=== PATIENT | male | born 1955 | race Caucasian/White ===

== ENCOUNTER → 2022-11-16 | Outpatient (REF) | payer MEDICARE ==
[~2022-11-16] MED LIST: ATOR80TA59 PO; BAYE81TA7 PO; BISO10TA14 PO; CARDCAP3 PO; CLOP75TA2 PO; D31000CA4 PO; FOLI1TAB11 PO; LISI40TA4 PO; NITR-67 PO; TRIA37.5 PO; VITA100T28 PO
== END ==
LOC: M SMT 13:05
PROVIDERS: ATTEND Urology
DX: Z01.818 Encounter for other preprocedural examination (principal); C61 Malignant neoplasm of prostate; N39.0 Urinary tract infection, site not specified

== ENCOUNTER → 2022-11-18 | Outpatient (CLI) | payer MEDICARE, OTHER | LOC: M LABSMTC 10:26 | PROVIDERS: ATTEND Anesthesiology | DX: Z01.818 Encounter for other preprocedural examination (principal) ==

== ENCOUNTER 2022-11-23 06:03 | Inpatient (IN) | payer MEDICARE ==
[~2022-11-23] VITALS: Ht 180.3 cm; Wt 105.0 kg
[2022-11-23] VITALS (8 sets, daily range): BP systolic 104–143; BP diastolic 71–85
[~2022-11-23 06:03] MED LIST changes: +HEPARIN SOD (PORCINE) 5000UNITS/ML 1ML VIAL/SYRINGE SQ ONE
[2022-11-23] MEDS ORDERED: ceFAZolin SOD 2 GM in IV 1 EA IV ONE (06:05)
[2022-11-23] MEDS ORDERED: LR 1,000 ML IV SCH ×2 (06:40→12:20)
[2022-11-23] MEDS ORDERED: BUPIVACAINE HCL 0.25% 30ML VIAL As Ordered ONE (07:07)
[2022-11-23] MEDS ORDERED: LIDOCAINE 1% SDV 30ML VIAL As Ordered ONE (07:07)
[2022-11-23] MEDS ORDERED: LIDOCAINE 2% 100MG/5ML SDV (FOR ANES.) As Ordered ONE (07:17)
[2022-11-23] MEDS ORDERED: propofoL 200 MG/20 ML VIAL As Ordered ONE (07:17)
[2022-11-23] MEDS ORDERED: ROCURONIUM BROMIDE 50MG/5ML VIAL As Ordered ONE ×3 (07:17→10:42)
[2022-11-23] MEDS ORDERED: fentaNYL 250 MCG/5 ML INJECTION As Ordered ONE (07:18)
[2022-11-23] MEDS ORDERED: MIDAZOLAM INJ 2MG/2ML VIAL As Ordered ONE (07:18)
[2022-11-23] MEDS ORDERED: ACETAMINOPHEN TAB 650MG DOSE (2X325MG) PO PRN (07:25)
[2022-11-23] MEDS ORDERED: PERCOCET 5MG/325MG TAB PO PRN ×2 (07:25)
[2022-11-23] MEDS ORDERED: ONDANSETRON 4MG 2ML VIAL IV PRN ×2 (07:25→12:20)
[2022-11-23] MEDS ORDERED: PHENYLephrine 500MCG 5ML (100MCG/ML) SYRINGE As Ordered ONE ×2 (07:43→08:29)
[2022-11-23] MEDS ORDERED: LACRILUBE (AKWA TEARS) OPHTH OINT 3.5GM As Ordered ONE (07:48)
[2022-11-23] MEDS ORDERED: ePHEDrine SULFATE 25 MG/5 ML(5MG/ML) SYRINGE As Ordered ONE (08:29)
[2022-11-23] MEDS ORDERED: ONDANSETRON 4MG 2ML VIAL As Ordered ONE (08:38)
[2022-11-23] MEDS ORDERED: KETOROLAC 60MG 2ML VIAL As Ordered ONE (08:38)
[2022-11-23] MEDS ORDERED: ACETAMINOPHEN 1000MG 100ML IV BAG As Ordered ONE (08:38)
[2022-11-23] MEDS ORDERED: METOCLOPRAMIDE INJ 10MG/2ML VIAL As Ordered ONE (08:38)
[2022-11-23] MEDS ORDERED: MAXZIDE 75/50 TABLET PO SCH (09:00)
[2022-11-23] MEDS ORDERED: HYDROmorphone HCL 2MG/ML 1ML VIAL As Ordered ONE (10:26)
[2022-11-23] MEDS ORDERED: fentaNYL 100 MCG/2 ML INJECTION IV PRN (12:20)
[2022-11-23] MEDS ORDERED: HYDROMORPHONE HCL 0.5 MG/ 0.5 ML SYRINGE IV PRN (12:20)
[2022-11-23] MEDS ORDERED: oxyCODONE 5MG TAB PO PRN (12:20)
[2022-11-23] MEDS ORDERED: SUGAMMADEX SODIUM 500 MG/5 ML VIAL (BRIDION) As Ordered ONE (12:27)
[2022-11-23 13:27] LABS: HEMATOCRIT 30.6 % (42.0-52.0); HEMOGLOBIN 10.2 g/dl (13.5-17.5); MEAN CORPUSCULAR HEMOGLOBIN 32.4 pg (27.0-33.0); MEAN CORPUSCULAR HGB CONC 33.3 g/dl (32.0-36.5); MEAN CORPUSCULAR VOLUME 97.1 fl (80.0-96.0); PLATELET COUNT, AUTOMATED 180 10^3/uL (150-450); RED BLOOD COUNT 3.15 10^6/uL (4.30-6.10); WHITE BLOOD COUNT 12.2 10^3/uL (4.0-10.0)
[2022-11-23 13:50] LABS: CALCIUM LEVEL 8.3 MG/DL (8.3-10.6); CREATININE FOR GFR 1.5 MG/DL (0.70-1.30); GLOMERULAR FILTRATION RATE 49.7 (>49); POTASSIUM SERUM 4.8 MMOL/L (3.5-5.1)
[2022-11-23] MEDS: NS 1,000 ML IV SCH (14:45)
[2022-11-23] MEDS: DOCUSATE SODIUM 100MG CAPSULE PO SCH ×2 (15:00→20:24)
[2022-11-23] MEDS: HEPARIN SOD (PORCINE) 5000UNITS/ML 1ML VIAL/SYRINGE SC SCH ×2 (15:07→21:21)
[2022-11-23] MEDS: ceFAZolin SOD 1 GM in D5W MINI-BAG PLUS 50 ML IV SCH ×2 (15:08→23:01)
[2022-11-23] MEDS: lisinopriL 40MG TAB PO SCH (16:00)
[2022-11-23] MEDS ORDERED: PILL CUTTER 1 EACH XX PRN (16:20)
[2022-11-23] MEDS ORDERED: ATORVASTATIN 20 MG TAB PO SCH (21:00)
[2022-11-24] MEDS: NS 1,000 ML IV SCH (02:37)
[2022-11-24 03:00] VITALS: BP 101/65
[2022-11-24] MEDS: HEPARIN SOD (PORCINE) 5000UNITS/ML 1ML VIAL/SYRINGE SC SCH ×2 (05:31→14:09)
[2022-11-24 06:00] LABS: HEMATOCRIT 26.1 % (42.0-52.0); HEMOGLOBIN 8.8 g/dl (13.5-17.5); MEAN CORPUSCULAR HEMOGLOBIN 32.7 pg (27.0-33.0); MEAN CORPUSCULAR HGB CONC 33.7 g/dl (32.0-36.5); PLATELET COUNT, AUTOMATED 179 10^3/uL (150-450); RED BLOOD COUNT 2.69 10^6/uL (4.30-6.10); WHITE BLOOD COUNT 9.9 10^3/uL (4.0-10.0)
[2022-11-24 06:30] LABS: CALCIUM LEVEL 8.5 MG/DL (8.3-10.6); CREATININE FOR GFR 1.28 MG/DL (0.70-1.30); GLOMERULAR FILTRATION RATE 59.7 (>49); POTASSIUM SERUM 4.1 MMOL/L (3.5-5.1)
[2022-11-24 07:00] VITALS: BP 121/73
[2022-11-24 08:00] VITALS: BP 122/71
[2022-11-24] MEDS ORDERED: bisoproloL fumarate 10 MG TAB PO SCH (09:00)
[2022-11-24] MEDS ORDERED: MAXZIDE 75/50 TABLET PO SCH (09:00)
[2022-11-24] MEDS: lisinopriL 40MG TAB PO SCH (09:27)
[2022-11-24] MEDS: DOCUSATE SODIUM 100MG CAPSULE PO SCH (09:27)
[2022-11-24 09:28] VITALS: BP 122/71
[2022-11-24 10:00] VITALS: BP 115/67
[2022-11-24 12:00] VITALS: BP 107/61
[2022-11-24 14:07] LABS: HEMATOCRIT 26.3 % (42.0-52.0); HEMOGLOBIN 8.8 g/dl (13.5-17.5); MEAN CORPUSCULAR HEMOGLOBIN 32.2 pg (27.0-33.0); MEAN CORPUSCULAR HGB CONC 33.5 g/dl (32.0-36.5); MEAN CORPUSCULAR VOLUME 96.3 fl (80.0-96.0); PLATELET COUNT, AUTOMATED 169 10^3/uL (150-450); RED BLOOD COUNT 2.73 10^6/uL (4.30-6.10); WHITE BLOOD COUNT 10.6 10^3/uL (4.0-10.0)
[2022-11-24] MEDS ORDERED: COLA100C5 PO (15:25)
[2022-11-24] MEDS ORDERED: FERR325T3 PO (15:25)
[2022-11-24] MEDS ORDERED: PERCOCET PO (15:25)
[2022-11-24] MEDS ORDERED: BACT800T5 PO (15:25)
== END 2022-11-24 16:53 | disposition home or self-care (01) | DRG 708 ==
LOC: M OR 06:03 → M MSPAV 14:34
PROVIDERS: ADMIT Urology; ATTEND Urology
PROC: 07BC4ZZ Excision of Pelvis Lymphatic, Percutaneous Endoscopic Approach (ICD-10-PCS; 2022-11-23)
PROC: 8E0W4CZ Robotic Assisted Procedure of Trunk Region, Percutaneous Endoscopic Approach (ICD-10-PCS; 2022-11-23)
PROC: 0VT04ZZ Resection of Prostate, Percutaneous Endoscopic Approach (ICD-10-PCS; principal; 2022-11-23 07:30)
DX: C61 Malignant neoplasm of prostate (principal); R53.1 Weakness; M79.662 Pain in left lower leg; I10 Essential (primary) hypertension; E78.00 Pure hypercholesterolemia, unspecified; E55.9 Vitamin D deficiency, unspecified; R33.9 Retention of urine, unspecified; Z79.899 Other long term (current) drug therapy; Z79.82 Long term (current) use of aspirin

== ENCOUNTER → 2022-12-06 | Outpatient (CLI) | payer MEDICARE ==
[~2022-12-06] MED LIST changes: +BACT800T5 PO; +COLA100C5 PO; +CYSTO-CONRAY II 17.2% 250ML VIAL As Ordered ONE; +FERR325T3 PO; -HEPARIN SOD (PORCINE) 5000UNITS/ML 1ML VIAL/SYRINGE SQ ONE; +PERCOCET PO
== END ==
LOC: M RADPRO 09:32
PROVIDERS: ATTEND Urology
DX: R32 Unspecified urinary incontinence (principal)
CPT/HCPCS: 51610; 74430; Q9958

== ENCOUNTER → 2024-01-10 | Outpatient (REF) | payer MEDICARE, MEDICAID ==
[~2024-01-10] MED LIST changes: -CYSTO-CONRAY II 17.2% 250ML VIAL As Ordered ONE
[2024-01-10 19:12] LABS: ALBUMIN 4.2 G/DL (3.2-5.2); BILIRUBIN,TOTAL 1.3 MG/DL (0.3-1.2); CALCIUM LEVEL 9.9 MG/DL (8.3-10.6); CHOLESTEROL RISK RATIO 3.3 (<5); CREATININE FOR GFR 1.52 MG/DL (0.70-1.30); GLOMERULAR FILTRATION RATE 48.8 (>49); HDL CHOLESTEROL 35.7 MG/DL (>40); LDL CHOLESTEROL 60.5 MG/DL (<100); NON-HDL-C 82.3 MG/DL; POTASSIUM SERUM 3.6 MMOL/L (3.5-5.1)
[2024-01-10 19:21] LABS: HEMOGLOBIN A1c 6.4 % (4.0-6.0)
== END ==
LOC: M LAB REF 17:33
PROVIDERS: ATTEND Family Medicine
DX: I12.9 Hypertensive chronic kidney disease with stage 1 through stage 4 chronic kidney disease, or unspecified chronic kidney disease (principal); N18.31 Chronic kidney disease, stage 3a; E78.5 Hyperlipidemia, unspecified; R73.03 Prediabetes

== ENCOUNTER 2024-04-09 08:21 | Day surgery (SDC) | payer MEDICARE, MEDICAID ==
[~2024-04-09] VITALS: Ht 180.3 cm; Wt 106.8 kg
[~2024-04-09 08:21] MED LIST changes: +GABA-282 PO; +IRON65TA2 PO; +LR 1,000 ML IV SCH
[2024-04-09] MEDS: PHENYLEPHRINE 2.5% OPHTH SOL 2ML OD SCH (09:17)
[2024-04-09] MEDS: ATROPINE SULFATE 1% OPHTH SOLN 2ML BTL OD SCH (09:17)
[2024-04-09] MEDS: FLURBIPROFEN 0.03% OPHTH SOLN 2.5 ML OD SCH (09:17)
[2024-04-09] MEDS: TETRACAINE 0.5% OPHTH SOLN 4ML OD SCH (09:17)
[2024-04-09] MEDS ORDERED: MIDAZOLAM INJ 2MG/2ML VIAL As Ordered ONE (10:54)
[2024-04-09] MEDS: LIDOCAINE 1% SDV 5ML VIAL As Ordered ONE (10:55)
[2024-04-09] MEDS ORDERED: VISCOAT 40-30MG/ML 0.5ML SYRINGE As Ordered ONE (10:57)
[2024-04-09] MEDS: CEFUROXIME 1MG/0.1ML INTRACAMERAL INJ As Ordered ONE (10:58)
[2024-04-09 11:30] VITALS: BP 136/82; TEMP 97.8; O2SAT 98
== END 2024-04-09 11:49 | disposition home or self-care (01) ==
LOC: M SDC 08:21
PROVIDERS: ATTEND Ophthalmology
DX: H25.11 Age-related nuclear cataract, right eye (principal); I10 Essential (primary) hypertension; E78.00 Pure hypercholesterolemia, unspecified; Z86.73 Personal history of transient ischemic attack (TIA), and cerebral infarction without residual deficits; Z85.46 Personal history of malignant neoplasm of prostate; Z79.899 Other long term (current) drug therapy; Z79.02 Long term (current) use of antithrombotics/antiplatelets; Z87.891 Personal history of nicotine dependence; Z90.79 Acquired absence of other genital organ(s)
CPT/HCPCS: 66984; A4649; J0697; J2250; V2632